=== PATIENT | female | born 1965 | race American Indian/Alaskan Native ===

== ENCOUNTER 2019-03-18 05:49 | Day surgery (SDC) | payer BC ==
[2019-03-18] MEDS ORDERED: BACTERIOSTATIC SODIUM CHLORIDE 0.9% 30 ML VIAL INFILTRATI ONE (06:23)
[2019-03-18] MEDS ORDERED: LIDOCAINE (1%) 10 MG/1 ML VIAL 20 ML MDV ONE (06:27)
[2019-03-18] MEDS ORDERED: BUPIVACAINE/PF (0.25%) 2.5 MG/ML 30 ML VIAL INFILTRATI ONE ×2 (06:27→08:09)
[2019-03-18] MEDS ORDERED: MIDAZOLAM 2 MG/2 ML INJ IV ONE (06:29)
[2019-03-18] MEDS ORDERED: HYDROmorphone 1 MG/1 ML INJ IV PRN (06:33)
[2019-03-18] MEDS ORDERED: HYDROcodone/ACETAMINOPHEN 5-325 MG TAB PO PRN (06:33)
[2019-03-18] MEDS ORDERED: ONDANSETRON 4 MG/2 ML INJ IV PRN (06:33)
--- NOTE | 2019-03-18 06:33 | Anesthesia Day of Surgery ---
Anesthesia Day of Surgery - Day of Surgery Patient Examined: Yes Patient H&P Reviewed: Yes Patient is NPO: Yes
--- NOTE | 2019-03-18 06:33 | Anesthesia Consultation ---
Anesthesia Consult and Med Hx Date of service: 03/18/19 - Airway Anesthetic Teeth Evaluation: Good ROM Head & Neck: Adequate Mental/Hyoid Distance: Adequate Mallampati Class: Class II Intubation Access Assessment: Probably Good - Pulmonary Exam CTA: Yes - Cardiac Exam Cardiac Exam: RRR - Pre-Operative Health Status ASA Pre-Surgery Classification: ASA2 Proposed Anesthetic Plan: General - Pulmonary Hx Sleep Apnea: Yes (CPAP) - Central Nervous System Hx Psychiatric Problems: No - Other Systems Hx Alcohol Use: Yes ([place] WINE) Hx Substance Use: No Hx Cancer: No Hx Obesity: Yes
[2019-03-18] MEDS ORDERED: LACTATED RINGERS 1,000 ML IV SCH (07:00)
[2019-03-18] MEDS ORDERED: LIDOCAINE MPF (2%) 20 MG/1 ML VIAL 5 ML ONE (07:35)
[2019-03-18] MEDS ORDERED: PROPOFOL 200 MG/20 ML VIAL IV ONE (07:36)
[2019-03-18] MEDS ORDERED: fentaNYL 100 MCG/2 ML INJ ONE (07:36)
[2019-03-18] MEDS ORDERED: ceFAZolin/STERILE WATER 2 GM/20 ML SYRINGE IV NR (08:00)
[2019-03-18] MEDS ORDERED: LIDOCAINE (1%) 10 MG/1 ML VIAL 20 ML MDV INFILTRATI ONE (08:09)
[2019-03-18] MEDS ORDERED: SODIUM CHLORIDE 0.9% IRR 1,500 ML BOTTLE IR ONE (08:10)
[2019-03-18] MEDS ORDERED: NEOMY 3.5 MG/BACIT 400 UNITS/POLY B 5000 UNITS/GM OINT PACKET TP ONE (08:15)
--- NOTE | 2019-03-18 08:33 | Short Stay Summary ---
Short Stay Documentation Date of service: 03/18/19 - History Principal diagnosis: soft tissue mass right inner thigh, skin tags L axilla - Allergies and Medications Current Medications: Allergies No Known Allergies Allergy (Verified 03/13/19 17:05) Home Medications Medication Instructions Recorded Confirmed Last Taken Type No Known Home Medications [No 03/13/19 03/13/19 Unknown History Reported Home Medications] Active Medications Acetaminophen/Hydrocodone Bitart ([place] 5/325) 2 each PO ONCE PRN PRN Reason: Pain, Moderate (4-6) Cefazolin Sodium (Ancef/Sterile Water 2 Gm/20 Ml) 2 gm IV PREOP NR Stop: 03/18/19 11:00 Hydromorphone HCl (Dilaudid) 0.5 mg IV Q10MIN PRN PRN Reason: Pain , Severe (7-10) Stop: 03/18/19 14:56 Lactated Ringer's (Lactated Ringers) 1,000 mls @ 100 mls/hr IV DIRECT FATUMA Last Admin: 03/18/19 06:45 Dose: 100 mls/hr Documented by: Ondansetron HCl (Zofran) 4 mg IV ONCE PRN PRN Reason: Nausea And Vomiting - Brief post op/procedure progress note Date of procedure: 03/18/19 Pre-op diagnosis: skin tags left axilla, soft tissue mass right inner thigh Post-op diagnosis: same Procedure: 1. Excision of skin tags left axilla 2. Excision soft tissue mass right inner thigh Anesthesia: MAC, local Findings: 1. 2 small skin tags of left axilla 2. 7 cm soft tissue mass of right inner thigh consistent with lipoma Surgeon: EVELIO MCKEON Estimated blood loss: minimal Pathology: list (1. skin tags left axilla, 2. soft tissue mass right inner thigh) Specimen disposition: to lab Condition: stable - Hospital course Hospital course: Pt observed in PACU and discharged to home in stable condition - Disposition Condition at discharge: Good Disposition: - TO HOME OR SELFCARE Short Stay Discharge Plan Activity: no restrictions Diet: regular Wound: open to air Additional Instructions: SEE PRINTED DISCHARGE INSTRUCTIONS Follow up with: HAILEY MAGUIRE MD [Primary Care Provider] - 7 Days EVELIO MCKEON DO [Staff Physician] - 10 Days Prescriptions: HYDROcodone/APAP 5-325 [[place] 5-325 mg TAB] 1 each PO Q6H PRN #8 tablet PRN Reason: Pain , Severe (7-10)
[2019-03-18] MEDS ORDERED: BACITRACIN ZINC OINT 28.4 GM TP ONE (09:19)
[2019-03-18 09:31] VITALS: BP 132/79
--- NOTE | 2019-03-18 10:08 | Post Anesthesia Evaluation ---
- Post Anesthesia Evaluation Patient Participated: Yes Airway Patent: Yes Stable Respiratory Function: Yes Temp > 96.8F: Yes Pain Manageable: Yes Adequeate Hydration: Yes Anesthesia Complications: No
--- NOTE | 2019-03-20 13:41 | Operative Report ---
PREOPERATIVE DIAGNOSES: Skin tag, left axilla and soft tissue mass, right inner thigh. POSTOPERATIVE DIAGNOSES: Skin tag, left axilla and soft tissue mass, right inner thigh. PROCEDURES: 1. Excision of skin tag, left axilla x 2. 2. Excision soft tissue mass, right inner thigh. ANESTHESIA: MAC local. FINDINGS: 1. Two small skin tag of left axilla. 2. A 7 cm soft tissue mass of right inner thigh consistent with lipoma. SURGEON: Carri Garcia DO ESTIMATED BLOOD LOSS: Minimal. PATHOLOGY: 1. Skin tag, left axilla. 2. Soft tissue mass, right inner thigh. SPECIMEN DISPOSITION: To lab. CONDITION ON DISCHARGE: The patient is stable to PACU. HISTORY OF PRESENT ILLNESS AND INDICATION: The patient is a 54-year-old female who presented to the surgery clinic as a referral from her primary care physician for evaluation of a right inner thigh mass. The patient admitted that the mass had been there for many years and was not bothersome; however, her PCP encouraged her to consider excision. Excision was recommended due to the size of the mass. All risks, benefits and alternatives to surgery were discussed with the patient and questions answered. The patient also requested that skin tags from her left axilla be excised due to discomfort in the area after shaving. It was recommended this be performed at the same time as the excision of the inner thigh mass on the right. Consent was obtained. PROCEDURE IN DETAIL: The patient was identified in the preoperative area and taken back to the operating room and placed on the operating table in supine position. After anesthesia was induced, the left axilla and right inner thigh were prepped and draped in the usual sterile fashion. A timeout performed. First, I turned my attention to removing the two subcentimeter skin tags in the left axilla. There was a stalk associated with both skin tags, which were removed with the cut function on the Bovie. There was no bleeding. Bacitracin was applied to the sites. Both skin tags were passed off the table as a specimen. I then turned my attention to the right inner groin mass. Local anesthetic was infiltrated into the skin and subcutaneous tissue at the intended incision site. The mass did have an exophytic portion to it, which involved the skin. Therefore, an elliptical incision was made around the stalk and using a 15 blade dissection carried down through the skin and subcutaneous tissue using electrocautery. The mass was dissected free from the underlying subcutaneous tissue using combination of blunt dissection and electrocautery. Once the entire mass was circumferentially dissected from the underlying tissue, it was removed from the wound. The mass was fatty and lobulated consistent with a lipoma. The subcutaneous tissue was then irrigated with saline and hemostasis carefully ensured. Once hemostasis was ensured, the incision was closed in a layered fashion. The deep dermal layer was closed with 3-0 Vicryl interrupted sutures. The skin was closed with 4-0 Monocryl subcuticular running stitch and skin glue. The mass was measured at 7 cm and passed off the table as a specimen. Once the glue was dry, the cover site bandage was placed over the area in the groin. At the end of the case, all sponge, instrument, sharp counts were correct x 2. She was awoken from anesthesia and taken to PACU in stable condition. JOB# [id number] JANI/HELLEN
== END 2019-03-18 05:50 | disposition home or self-care (01) ==
LOC: OR 05:49
PROVIDERS: ATTEND Surgery
DX: R22.41 Localized swelling, mass and lump, right lower limb (principal); D17.23 Benign lipomatous neoplasm of skin and subcutaneous tissue of right leg; L72.0 Epidermal cyst; G47.30 Sleep apnea, unspecified; E66.9 Obesity, unspecified; Z68.38 Body mass index [BMI] 38.0-38.9, adult; Z87.442 Personal history of urinary calculi; Z79.899 Other long term (current) drug therapy; Z72.89 Other problems related to lifestyle; Z98.890 Other specified postprocedural states; Z80.8 Family history of malignant neoplasm of other organs or systems
CPT/HCPCS: 11200; 27337; 88304; 88307; J0690; J2250; J2704; J3010; J7120; A6250

== ENCOUNTER 2019-05-20 11:00 | Outpatient (CLI) | payer BC | END 2019-05-20 11:01 | disposition home or self-care (01) | LOC: SLR 11:00 | PROVIDERS: ATTEND Otolaryngology | DX: G47.33 Obstructive sleep apnea (adult) (pediatric) (principal); R40.0 Somnolence; E66.9 Obesity, unspecified | CPT/HCPCS: 95811 ==